=== PATIENT | male | born 1985 | race Caucasian/White ===

== ENCOUNTER 2021-06-30 23:55 | Emergency (ER) | payer OTHER ==
[~2021-06-30] VITALS: Ht 177.8 cm; Wt 90.7 kg
[2021-07-01] MEDS ORDERED: LOTENSIN10 MG PO (00:14)
[2021-07-01 01:02] LABS: ABSOLUTE BASOPHILS 0.1 thou/uL (0.0-0.2); ABSOLUTE EOSINOPHILS 0.1 thou/uL (0.0-0.7); ABSOLUTE LYMPHOCYTES 2.3 thou/uL (0.8-5.3); ABSOLUTE MONOCYTES 0.9 thou/uL (0.0-1.2); BASOPHILS 1.2 %; EOSINOPHILS 1.4 %; HEMATOCRIT 42.8 % (42.0-52.0); HEMOGLOBIN 14.9 gm/dL (14.0-18.0); LYMPHOCYTES 26.9 %; MCH 34.1 pg (26.0-34.0); MCHC 34.9 g/dL (28.0-37.0); MCV 97.7 fL (80.0-100.0); MPV 7.8 fl. (7.2-11.1); NUCLEATED RBCS 0 /100WBC; PLATELET COUNT* 187 thou/uL (150-400); POLYS 59.5 %; RBC 4.37 mil/uL (4.50-6.00); RDW-CV 12.2 % (10.5-14.5); WBC 8.4 thou/uL (4.0-11.0)
[2021-07-01 01:10] LABS: POTASSIUM 3.8 mmol/L (3.5-5.1)
[2021-07-01 01:19] LABS: ALBUMIN 3.8 g/dL (3.4-5.0); TOTAL BILIRUBIN 1.2 mg/dL (<0.1-1.0); TOTAL PROTEIN 7.8 g/dL (6.4-8.2)
[2021-07-01 01:50] LABS: URINE BILIRUBIN NEGATIVE (Negative); URINE BLOOD NEGATIVE (Negative); URINE CLARITY CLEAR; URINE COLOR YELLOW; URINE GLUCOSE-RANDOM NEGATIVE (Negative); URINE KETONES NEGATIVE (Negative); URINE LEUKOCYTES-REFLEX NEGATIVE (Negative); URINE NITRITE-REFLEX NEGATIVE (Negative); URINE PROTEIN NEGATIVE (Negative); URINE SPECIFIC GRAVITY <= 1.005 (1.005-1.030)
[2021-07-01] MEDS ORDERED: FLAGYL500 M1 PO (02:32)
[2021-07-01] MEDS ORDERED: ZOFRAN ODT4 MG PO (02:32)
[2021-07-01 03:35] VITALS: BP 120/78
== END 2021-07-01 03:35 | disposition home or self-care (01) ==
LOC: M.ERS 23:55
PROVIDERS: Emergency Medicine
DX: K52.9 Noninfective gastroenteritis and colitis, unspecified (principal); R11.2 Nausea with vomiting, unspecified; I10 Essential (primary) hypertension; Z79.899 Other long term (current) drug therapy